=== PATIENT | female | born 1950 | race Caucasian/White ===

== ENCOUNTER 2018-12-14 18:49 | Emergency (ER) | payer MEDICARE, OTHER ==
[~2018-12-14] VITALS: Ht 152.4 cm; Wt 66.7 kg
--- NOTE | 2018-12-14 19:00 | NUR ---
Assumed care of patient from JUAN R Kahn.
--- NOTE | 2018-12-14 19:02 | NUR ---
Patient came in the ER with chief complaint of discomfort on left foot/heel area. Patient AAOx4. Per patient she step down on her porch this morning and felt a crunch on her left foot that cause discomfort. Patient took Tylenola at 5:30pm with minimal relief. Patient stated discomfort mostly on her heel.
--- NOTE | 2018-12-14 19:04 | NUR ---
Dr. Brown on bedside for MSE.
--- NOTE | 2018-12-14 19:20 | NUR ---
Colten bandage applied to left foot per Dr. Brown's instruction. Teching given to patient on how to reapply/remove colten bandage and states understanding.
--- NOTE | 2018-12-14 19:34 | NUR ---
Patient discharged to home in stable conditon. Written and verbal after care instructions given. Patient verbalizes understanding of instructions. Patient ambulated out of the ER with steady gait. All belongings with patient.
[2018-12-14 19:35] VITALS: BP 140/76
== END 2018-12-14 19:36 | disposition home or self-care (01) ==
LOC: ER 18:51
DX: S93.602A Unspecified sprain of left foot, initial encounter (principal); E11.9 Type 2 diabetes mellitus without complications; Z88.8 Allergy status to other drugs, medicaments and biological substances; X50.1XXA Overexertion from prolonged static or awkward postures, initial encounter; Y93.89 Activity, other specified; Y92.89 Other specified places as the place of occurrence of the external cause; Y99.8 Other external cause status
CPT/HCPCS: A4663

== ENCOUNTER 2020-12-12 15:06 | Inpatient (IN) | payer MEDICARE, OTHER ==
[~2020-12-12] VITALS: Ht 152.4 cm; Wt 61.2 kg
[2020-12-12] MEDS ORDERED: HUMALOG INSULIN (15:24)
[2020-12-12] MEDS ORDERED: LEVEMIR INSULIN (15:24)
--- NOTE | 2020-12-12 15:28 | NUR ---
PT IS IN ROOM #2B. DR SULLIVAN EVALUATED THE PT.
[2020-12-12 15:34] LABS: HEMATOCRIT 33.2 % (31.2-41.9); MEAN CORPUSCULAR HEMOGLOBIN 29.7 uug (24.7-32.8); MEAN CORPUSCULAR VOLUME 91.6 fL (75.5-95.3); PLATELET COUNT (AUTO) 368 K/uL (179-408)
[2020-12-12 15:43] LABS: CREATININE 1.6 mg/dL (0.6-1.3); POTASSIUM 4.2 mmol/L (3.5-5.1)
[2020-12-12 15:49] LABS: BILIRUBIN,TOTAL 0.2 mg/dL (0.2-1.0); TOTAL PROTEIN, SERUM 7.9 g/dL (6.4-8.2)
[2020-12-12] MEDS ORDERED: ONDANSETRON 4 MG/2 ML VIAL IV ONE (16:45)
[2020-12-12] MEDS ORDERED: ONDANSETRON 4 MG/2 ML VIAL ONE (16:56)
[2020-12-12] MEDS ORDERED: DEXTROSE 50% 50 ML DISP.SYRIN IV PRN (19:45)
[2020-12-12] MEDS ORDERED: MAGNESIUM HYDROXIDE 30 ML LIQUID UDC PO PRN (19:45)
[2020-12-12] MEDS ORDERED: Z GUARD REMEDY PASTE 57 GM TUBE TOP PRN (19:45)
[2020-12-12] MEDS ORDERED: INSULIN REGULAR, HUMAN 300 UNITS/3 ML VIAL SQ PRN (19:45)
[2020-12-12] MEDS ORDERED: ONDANSETRON 4 MG/2 ML VIAL IV PRN (19:45)
[2020-12-12] MEDS ORDERED: IV D5 1/2 NS 1000 ML 1,000 ML IV PRN (19:45)
--- NOTE | 2020-12-12 21:02 | NUR ---
Report from Inderjit PETE. Patient awake,alert, able to make needs known. Patient request with dinner tray,min assist with meal,fluids.HX left eye blindness uses white cane that did not come with patient. BRP min assist x 1 normal void per patient Back to [facility],comfort measures x 2.
[2020-12-12] MEDS ORDERED: ACETAMINOPHEN 325 MG TABLET PO ONE (21:30)
[2020-12-12] MEDS: BLOOD SUGAR DIAGNOSTIC 1 EACH STRIP VI SCH (21:56)
--- NOTE | 2020-12-12 23:33 | NUR ---
Ambulatory to [facility] x 1, Assisted with phone to call family. Medicated for Right leg pain as directed. Fluids offered. Comfort measures x 2 HOB up as requested.
--- NOTE | 2020-12-12 23:46 | NUR ---
Call for report to room 329 nurse will call back
--- NOTE | 2020-12-13 00:54 | NUR ---
Report to Ning Dailey .BP 120/51,P 80, SAO2 95% RA. Admit Hypoglycima/ placement RAC # 20 SL dry,intact ,to room 329. Patient transported with all personell belongings.
[2020-12-13 01:44] VITALS: BP 150/52
--- NOTE | 2020-12-13 02:11 | NUR ---
Pt arrived at 0105 in the unit from ER. Admitted to Tele for ALOC. AAO x4. No acute distress noted. Denies pain/ discomfort. Pt is legally blind, needs assist to walk to the bathroom. Oriented pt to room and equipment. Pertinent assessment done. Needs attended promptly. Safety measures maintained. Call light and personal items within reach. Will continue to monitor.
[2020-12-13] MEDS: ACETAMINOPHEN 325 MG TABLET PO PRN ×3 (03:52→16:52)
[2020-12-13 04:44] VITALS: BP 129/33
[2020-12-13] MEDS: BLOOD SUGAR DIAGNOSTIC 1 EACH STRIP VI SCH ×4 (06:36→20:52)
[2020-12-13] MEDS: INSULIN REGULAR, HUMAN 300 UNIT/3 ML VIAL SQ PRN ×4 (06:37→16:41)
--- NOTE | 2020-12-13 06:39 | NUR ---
Blood sugar this morning is 538. Followed sliding scale and gave 15 units, notified Dr. De Luna. Will recheck again.
--- NOTE | 2020-12-13 07:30 | NUR ---
Notified Dr. Navarrete of pt's blood sugar. Rechecked blood sugar again at 0715, pt's BS went up to 554. aware. Asked MD if okay to dc IV D5 1/2 NS, okayed and also ordered to give another 15 units of regular insulin. Carried out order. Endorsed accordingly to AM shift.
[2020-12-13 08:19] LABS: HEMATOCRIT 33.8 % (31.2-41.9); MEAN CORPUSCULAR HEMOGLOBIN 29.4 uug (24.7-32.8); MEAN CORPUSCULAR VOLUME 94.6 fL (75.5-95.3); PLATELET COUNT (AUTO) 431 K/uL (179-408)
[2020-12-13 08:38] VITALS: BP 124/45
[2020-12-13 08:44] LABS: CREATININE 1.9 mg/dL (0.6-1.3); MAGNESIUM 2.4 mg/dL (1.8-2.4); PHOSPHOROUS 3.8 mg/dL (2.5-4.9); POTASSIUM 5.6 mmol/L (3.5-5.1)
--- NOTE | 2020-12-13 10:11 | NUR ---
Received pt. AAOX4. vitals stable no c/of pain POC above 400 treated see eMAR. IV access patent. Patient compliant with care. will continue to monitor.
[2020-12-13] MEDS ORDERED: SODIUM POLYSTYRENE SULFONATE 15 G/60 ML LIQUID UDC PO ONE (11:30)
--- NOTE | 2020-12-13 11:31 | NUR ---
Attending notified of accu-check of 410 and informed that pt. cover Per sliding scale no further orders received.
[2020-12-13] MEDS: IV NS 1000 ML 1,000 ML IV PRN ×2 (11:46→22:34)
[2020-12-13 11:56] VITALS: BP 99/48
[2020-12-13] MEDS ORDERED: INSU100I19 SQ (14:10)
[2020-12-13] MEDS ORDERED: PREG75CA PO (14:10)
[2020-12-13] MEDS ORDERED: MONT10TA22 PO (14:10)
[2020-12-13] MEDS ORDERED: AMLO5TAB4 PO (14:10)
[2020-12-13] MEDS ORDERED: NEBI10TA2 PO (14:10)
[2020-12-13] MEDS ORDERED: FENO134C PO (14:10)
[2020-12-13] MEDS ORDERED: INSU100V SQ (14:10)
[2020-12-13] MEDS ORDERED: OLME40TA12 PO (14:10)
[2020-12-13] MEDS ORDERED: OMEP20TA5 PO (14:10)
[2020-12-13] MEDS ORDERED: ICOS1CAP PO (14:10)
[2020-12-13] MEDS ORDERED: HYDR25TA4 PO (14:10)
[2020-12-13] MEDS ORDERED: AMIT25TA9 PO (14:10)
[2020-12-13] MEDS ORDERED: ALEN70TA3 PO (14:10)
[2020-12-13] MEDS ORDERED: INSU100V10 SQ (14:10)
[2020-12-13] MEDS ORDERED: ROSU20TA2 PO (14:10)
[2020-12-13] MEDS ORDERED: CLOP75TA15 PO (14:10)
[2020-12-13] MEDS: HYDROCODONE/APAP 5-325MG TABLET PO PRN ×2 (14:23→21:55)
[2020-12-13 15:44] VITALS: BP 125/32
--- NOTE | 2020-12-13 17:50 | NUR ---
Left pt resting comfortable pain well controlled. AAOX4. vitals stable. On room air with saturation within desire limits, afebrile for the entire shift. Tolerating diet well with no n/v/d. Ambulatory with assistance no injury sustained. IV access patent and infusing with IVF. Cardiac lobo stable with sbp within desired limits. Will endorse to incoming shift.
--- NOTE | 2020-12-13 19:30 | NUR ---
RECEIVED PT AWAKE, ALERT AND ORIENTED X 4. PT IN NO ACUTE DISTRESS. IV INTACT. SAFETY AND COMFORT PROVIDED. WILL CONTINUE TO MONITOR.
[2020-12-13 20:00] VITALS: BP 121/40
[2020-12-14] VITALS: BP 129/50
[2020-12-14] MEDS: ACETAMINOPHEN 325 MG TABLET PO PRN (02:10)
--- NOTE | 2020-12-14 03:58 | NUR ---
PT GIVEN NORCO 5-325 MG AT 2155H FOR 8/10 GENERALIZED PAIN SCALE AND TYLENOL 0210H 650 MG PRN FOR GENERALIZED PAIN. PT TOLERATED IT WELL. WILL CONTINUE TO MONITOR.
[2020-12-14 04:21] VITALS: BP 142/45
--- NOTE | 2020-12-14 05:47 | NUR ---
PT SLEPT INTERMITTENTLY. PT IN NO ACUTE DISTRESS. PRESCRIBED MEDICATION GIVEN AND PT TOLERATED IT WELL. PT IV INTACT.PT ON SINUS RHYTHM.SAFETY AND COMFORT PROVIDED. ALL NEEDS ARE MET. WILL ENDORSE TO INCOMING NURSE FOR CONTINUITY OF CARE.
[2020-12-14] MEDS: BLOOD SUGAR DIAGNOSTIC 1 EACH STRIP VI SCH ×2 (06:00→11:46)
--- NOTE | 2020-12-14 06:07 | NUR ---
NOTIFIED DR. MCKAY MORELOS REGARDING BLOOD [id number] AND WILL RECHECK BLOOD SUGAR AFTER 30 MINUTES. INSULIN PROTOCOL INITIATED. GAVE INSULIN 15U AND NOTIFY MD. PT IN NO ACUTE DISTRESS. PT NO SIGNA AND SYMPTOMS OF HYPERGLYCEMIA. WILL CONTINUE TO MONITOR.
[2020-12-14] MEDS: INSULIN REGULAR, HUMAN 300 UNIT/3 ML VIAL SQ PRN ×3 (06:09→11:45)
--- NOTE | 2020-12-14 06:50 | NUR ---
BLOOD SUGAR RECHECKED AND IT WAS 496. PT NO SIGNS OF SYMPTOMS OF HYPERGLYCEMIA AND IN NO ACUTE DISTRESS. NOTIFY HYDROGRAPHIC ENGINEER.
[2020-12-14 06:54] LABS: HEMATOCRIT 30.8 % (31.2-41.9); MEAN CORPUSCULAR HEMOGLOBIN 30.5 uug (24.7-32.8); MEAN CORPUSCULAR VOLUME 92.3 fL (75.5-95.3); PLATELET COUNT (AUTO) 339 K/uL (179-408)
[2020-12-14 07:03] LABS: CREATININE 1.5 mg/dL (0.6-1.3); PHOSPHOROUS 2.8 mg/dL (2.5-4.9); POTASSIUM 5.1 mmol/L (3.5-5.1)
--- NOTE | 2020-12-14 07:12 | NUR ---
AT 0710H ORDERED TO GIVE 15U REGULAR INSULIN AND ASKED PT REGARDING LEVEMIR DOSE OF THE PT. TOLD THAT PT IS GETTING 37U IN THE MORNING AND 35 UNITS AT NIGHT.
[2020-12-14] MEDS ORDERED: INSULIN DETEMIR 300 UNIT/3 ML CARTRIDGE SQ SCH ×2 (09:00→21:00)
[2020-12-14] MEDS ORDERED: INSULIN GLARGINE,HUM 300 UNITS/3 ML CARTRIDGE SQ SCH ×2 (09:00→21:00)
--- NOTE | 2020-12-14 10:02 | NUR ---
alert and oriented able to make needs known. denies pain or discomfort. assisted to the bathroom. no s/sx of hyperglycemia. no acute distress. iv intact and patent. bed lowest and locked siderails x2 up. call light in reach. will cont to monitor.
[2020-12-14 11:28] VITALS: BP 147/44
[2020-12-14 16:00] VITALS: BP 145/52
--- NOTE | 2020-12-14 16:00 | NUR ---
Discharged to home. alert and oriented x4 able to make needs known. denies pain or sob. no acute distress. follow up and medication instructions given to patient and her brother Eber and both verbalized understanding. Karen jama is assisting family of assisted living facility. Patient left via private car.
== END 2020-12-14 16:00 | disposition home or self-care (01) | DRG 637 ==
LOC: ER 15:08 → TELE3 12-13 00:07
PROVIDERS: ADMIT Internal Medicine; ATTEND Internal Medicine
DX: E11.649 Type 2 diabetes mellitus with hypoglycemia without coma (principal); G93.41 Metabolic encephalopathy; N17.0 Acute kidney failure with tubular necrosis; D64.9 Anemia, unspecified; I10 Essential (primary) hypertension; Z79.4 Long term (current) use of insulin; H54.8 Legal blindness, as defined in USA; Z20.822 Contact with and (suspected) exposure to COVID-19; S80.01XA Contusion of right knee, initial encounter; W19.XXXA Unspecified fall, initial encounter; Y93.9 Activity, unspecified; Y92.009 Unspecified place in unspecified non-institutional (private) residence as the place of occurrence of the external cause
CPT/HCPCS: 36415; 70030-TC; 70450; 71045; 73551; 83605; 83735; 84100; 85025; 93005; 97161; A4663; G0378; J1815; J2405; J7030

== ENCOUNTER 2022-12-25 18:08 | Inpatient (IN) | payer MEDICARE, OTHER ==
[~2022-12-25] VITALS: Ht 157.5 cm; Wt 63.1 kg
[~2022-12-25 18:08] MED LIST: ALEN70TA3 PO; AMIT25TA9 PO; AMLO5TAB4 PO; CLOP75TA15 PO; FENO134C PO; HYDR25TA4 PO; ICOS1CAP PO; INSU100I19 SQ; INSU100V SQ; INSU100V10 SQ; MONT10TA22 PO; NEBI10TA2 PO; OLME40TA12 PO; OMEP20TA5 PO; PREG75CA PO; ROSU20TA2 PO
[2022-12-25] MEDS ORDERED: IV NORMAL SALINE 1000 ML BAG IV ONE (18:30)
[2022-12-25 18:52] LABS: BASOPHILS # (AUTO) 0.1 K/UL (0.0-0.2); BASOPHILS % (AUTO) 0.8 % (0.0-2.0); EOSINOPHILS % (AUTO) 0.1 % (0.0-7.0); HEMATOCRIT 37.2 % (31.2-41.9); HEMOGLOBIN 12.6 g/dL (10.9-14.3); LYMPHOCYTES % (AUTO) 19.8 % (20.5-51.5); MEAN CORPUSCULAR HEMOGLOBIN 30.3 uug (24.7-32.8); MEAN CORPUSCULAR HGB CONC 34 g/dL (32.3-35.6); MEAN CORPUSCULAR VOLUME 89.5 fL (75.5-95.3); MONOCYTES % (AUTO) 9.3 % (0.0-11.0); NEUTROPHILS # (AUTO) 7.3 K/uL (1.8-8.9); PLATELET COUNT (AUTO) 579 K/uL (179-408); RED BLOOD CELL COUNT(AUTO) 4.16 MIL/uL (3.63-4.92); RED CELL DISTRIBUTION WIDTH 12.9 % (12.3-17.7); WHITE BLOOD COUNT (AUTO) 10.4 K/uL (3.8-11.8)
[2022-12-25 18:57] LABS: DIFFERENTIAL COMMENT 1
[2022-12-25 19:02] LABS: CALCIUM 10.5 mg/dL (8.5-10.1); CARBON DIOXIDE 25 mmol/L (21-32); CHLORIDE 100 mmol/L (98-107); CREATININE 1.4 mg/dL (0.6-1.3); GLUCOSE 82 mg/dL (74-106); POTASSIUM 3.7 mmol/L (3.5-5.1); SODIUM SERUM 141 mmol/L (136-145); UREA NITROGEN, BLOOD 33 mg/dL (7-18)
[2022-12-25] MEDS ORDERED: LOPE2TAB25 PO (19:04)
[2022-12-25] MEDS ORDERED: TRAM50TA2 PO (19:04)
[2022-12-25] MEDS ORDERED: ICOS1CAP PO (19:04)
[2022-12-25] MEDS ORDERED: OMEP20CA15 PO (19:04)
[2022-12-25] MEDS ORDERED: INSU100V39 SQ (19:04)
[2022-12-25] MEDS ORDERED: FAMO20TA8 PO (19:04)
[2022-12-25] MEDS ORDERED: ACET325T53 PO ×2 (19:04)
[2022-12-25] MEDS ORDERED: BISM262O28 PO (19:04)
[2022-12-25] MEDS ORDERED: CALC-494 PO (19:04)
[2022-12-25] MEDS ORDERED: INSU100I24 SQ (19:04)
[2022-12-25] MEDS ORDERED: NEBI10TA2 PO (19:04)
[2022-12-25] MEDS ORDERED: LOSA100T31 PO (19:04)
[2022-12-25] MEDS ORDERED: LEVO5TAB13 PO (19:04)
[2022-12-25] MEDS ORDERED: DIPH1TAB PO (19:04)
[2022-12-25] MEDS ORDERED: [UNRECOGNIZED DRUG - OTHER] (19:04)
[2022-12-25] MEDS ORDERED: GABA600T12 PO (19:04)
[2022-12-25] MEDS ORDERED: ALEN10TA26 PO (19:04)
[2022-12-25] MEDS ORDERED: MELO-105 PO (19:04)
[2022-12-25] MEDS ORDERED: IRON (19:04)
[2022-12-25] MEDS ORDERED: DICL100G31 TP (19:04)
[2022-12-25] MEDS ORDERED: AMLO10TA59 PO (19:04)
[2022-12-25] MEDS ORDERED: ROSU10TA2 PO (19:04)
[2022-12-25] MEDS ORDERED: MONT10TA22 PO (19:04)
[2022-12-25 19:05] LABS: AMMONIA < 10 umol/L (11-32)
[2022-12-25 19:12] LABS: ALANINE AMINOTRANSFERASE 30 U/L (14-59); ALBUMIN 4.3 g/dL (3.4-5.0); ALKALINE PHOSPHATASE 99 U/L (50-136); ASPARTATE AMINOTRANSFERASE 18 U/L (15-37); BILIRUBIN,DIRECT 0.1 mg/dL (0.0-0.2); BILIRUBIN,TOTAL 0.5 mg/dL (0.2-1.0); TOTAL PROTEIN, SERUM 7.9 g/dL (6.4-8.2)
[2022-12-25 19:22] LABS: LACTIC ACID 2.8 mmol/L (0.4-2.0)
[2022-12-25] MEDS ORDERED: IV NS 1000 ML 1,000 ML IV ONE (19:30)
[2022-12-25] MEDS ORDERED: HALOPERIDOL LACTATE 5 MG/1 ML VIAL ONE ×2 (20:08→23:03)
[2022-12-25] MEDS ORDERED: diphenhydrAMINE 50 MG/1 ML VIAL ONE ×2 (20:08→23:03)
[2022-12-25] MEDS ORDERED: LORAZEPAM 2 MG/1 ML VIAL ONE ×2 (20:09→23:04)
[2022-12-25] MEDS ORDERED: HALOPERIDOL LACTATE 5 MG/1 ML VIAL IV ONE ×2 (20:15→22:45)
[2022-12-25] MEDS ORDERED: LORAZEPAM 2 MG/1 ML VIAL IV ONE ×2 (20:15→22:45)
[2022-12-25] MEDS ORDERED: diphenhydrAMINE 50 MG/1 ML VIAL IV ONE ×2 (20:15→22:45)
[2022-12-25 20:17] LABS: *BLOOD, URINE 2+ (NEGATIVE); *CLARITY,URINE CLEAR (CLEAR); *COLOR,URINE YELLOW (YELLOW); *KETONES,URINE TRACE (NEGATIVE); *UROBILINOGEN,URINE 0.2 E.U./dl (NORMAL); LEUKOCYTE ESTERASE ,URINE NEGATIVE (NEGATIVE); NITRITE, URINE NEGATIVE (NEGATIVE); PH,URINE 5.5 (5.0-8.0)
[2022-12-25 20:23] LABS: *PROTEIN,URINE 3+ (NEGATIVE)
[2022-12-25 20:24] LABS: *BILIRUBIN,URIN 1+ (NEGATIVE); UGLUCOSE 1+ (NEGATIVE)
[2022-12-25 20:37] LABS: BACTERIA,URINE FEW /HPF (NONE SEEN); RBC,URINE 20-50 /HPF (0-3); SQUAMOUS EPITHELIAL CELL,UR FEW /HPF (NONE SEEN); WBC,URINE 0-3 /HPF (0-3)
[2022-12-25] MEDS ORDERED: hydrALAZINE HCL 20 MG/1 ML VIAL ONE (22:00)
[2022-12-25] MEDS: hydrALAZINE HCL IV 20 MG in IV NORMAL SALINE 50 ML IV SCH (22:08)
[2022-12-25] MEDS ORDERED: ONDANSETRON 4 MG/2 ML VIAL IV PRN (22:15)
[2022-12-25] MEDS ORDERED: INSULIN REGULAR, HUMAN 300 UNIT/3 ML VIAL SQ PRN (22:15)
[2022-12-25] MEDS ORDERED: IV D5/ 0.9% NACL 1,000 ML IV PRN (22:15)
[2022-12-25] MEDS ORDERED: DEXTROSE 50% 50 ML DISP.SYRIN IV PRN (22:15)
[2022-12-25] MEDS ORDERED: ENOXAPARIN SODIUM 30 MG/0.3 ML DISP.SYRIN SUBCUT SCH (23:30)
[2022-12-26] VITALS (7 sets, daily range): BP systolic 152–191; BP diastolic 49–111; TEMP 97.9–99.8; O2SAT 93–100
[2022-12-26] MEDS: hydrALAZINE HCL 20 MG/1 ML VIAL IV PRN ×2 (03:13→23:00)
[2022-12-26] MEDS: hydrALAZINE HCL IV 20 MG in IV NORMAL SALINE 50 ML IV SCH (06:00)
[2022-12-26 07:05] LABS: BASOPHILS # (AUTO) 0.1 K/UL (0.0-0.2); BASOPHILS % (AUTO) 0.3 % (0.0-2.0); HEMATOCRIT 36.1 % (31.2-41.9); HEMOGLOBIN 11.8 g/dL (10.9-14.3); LYMPHOCYTES # (AUTO) 0.9 K/uL (0.8-4.8); LYMPHOCYTES % (AUTO) 4.9 % (20.5-51.5); MEAN CORPUSCULAR HEMOGLOBIN 30.4 uug (24.7-32.8); MEAN CORPUSCULAR HGB CONC 33 g/dL (32.3-35.6); MEAN CORPUSCULAR VOLUME 93.3 fL (75.5-95.3); MONOCYTES # (AUTO) 0.5 K/uL (0.1-1.30); MONOCYTES % (AUTO) 2.7 % (0.0-11.0); NEUTROPHILS # (AUTO) 17.2 K/uL (1.8-8.9); NEUTROPHILS % (AUTO) 92.1 % (38.5-71.5); PLATELET COUNT (AUTO) 543 K/uL (179-408); RED BLOOD CELL COUNT(AUTO) 3.87 MIL/uL (3.63-4.92); RED CELL DISTRIBUTION WIDTH 13.1 % (12.3-17.7); WHITE BLOOD COUNT (AUTO) 18.7 K/uL (3.8-11.8)
[2022-12-26 07:20] LABS: DIFFERENTIAL COMMENT 1
[2022-12-26 07:21] LABS: CALCIUM 9.5 mg/dL (8.5-10.1); CARBON DIOXIDE 15 mmol/L (21-32); CHLORIDE 103 mmol/L (98-107); CREATININE 1.3 mg/dL (0.6-1.3); MAGNESIUM 1.8 mg/dL (1.8-2.4); PHOSPHOROUS 3.7 mg/dL (2.5-4.9); POTASSIUM 4.5 mmol/L (3.5-5.1); SODIUM SERUM 139 mmol/L (136-145); UREA NITROGEN, BLOOD 32 mg/dL (7-18)
[2022-12-26 07:47] LABS: GLUCOSE 582 mg/dL (74-106)
[2022-12-26] MEDS: BLOOD SUGAR DIAGNOSTIC 1 EACH STRIP VI SCH ×6 (07:59→20:26)
[2022-12-26] MEDS ORDERED: INSULIN REGULAR, HUMAN 300 UNIT/3 ML VIAL SQ ONE (08:15)
[2022-12-26] MEDS ORDERED: PIPERACILLIN SODIUM/TAZOBACTAM 3.375 G in IV DEXTROSE 5% 50 ML IV SCH (09:00)
[2022-12-26] MEDS ORDERED: DEXTROSE 50% 50 ML DISP.SYRIN IV PRN (09:15)
[2022-12-26 09:35] LABS: BASOPHILS % (AUTO) 0.3 % (0.0-2.0); HEMATOCRIT 34.4 % (31.2-41.9); HEMOGLOBIN 11.2 g/dL (10.9-14.3); LYMPHOCYTES # (AUTO) 0.7 K/uL (0.8-4.8); LYMPHOCYTES % (AUTO) 4.4 % (20.5-51.5); MEAN CORPUSCULAR HEMOGLOBIN 30.4 uug (24.7-32.8); MEAN CORPUSCULAR HGB CONC 33 g/dL (32.3-35.6); MEAN CORPUSCULAR VOLUME 93.2 fL (75.5-95.3); MONOCYTES # (AUTO) 0.6 K/uL (0.1-1.30); MONOCYTES % (AUTO) 4.3 % (0.0-11.0); NEUTROPHILS # (AUTO) 13.6 K/uL (1.8-8.9); PLATELET COUNT (AUTO) 507 K/uL (179-408); RED BLOOD CELL COUNT(AUTO) 3.69 MIL/uL (3.63-4.92); RED CELL DISTRIBUTION WIDTH 13.4 % (12.3-17.7)
[2022-12-26 09:46] LABS: DIFFERENTIAL COMMENT 1
[2022-12-26 09:57] LABS: ALANINE AMINOTRANSFERASE 31 U/L (14-59); ALBUMIN 3.5 g/dL (3.4-5.0); ALKALINE PHOSPHATASE 88 U/L (50-136); ASPARTATE AMINOTRANSFERASE 35 U/L (15-37); BILIRUBIN,TOTAL 0.4 mg/dL (0.2-1.0); CARBON DIOXIDE 16 mmol/L (21-32); CHLORIDE 101 mmol/L (98-107); CREATININE 1.6 mg/dL (0.6-1.3); LIPASE 28 U/L (16-77); SODIUM SERUM 138 mmol/L (136-145); TOTAL PROTEIN, SERUM 6.8 g/dL (6.4-8.2); UREA NITROGEN, BLOOD 33 mg/dL (7-18)
[2022-12-26] MEDS ORDERED: VANCOMYCIN IV 1,000 MG in IV DEXTROSE 5% 250 ML IV SCH (10:00)
[2022-12-26] MEDS: METOPROLOL TARTRATE 50 MG TABLET PO SCH ×2 (10:01→20:23)
[2022-12-26] MEDS: CLOPIDOGREL 75 MG TABLET PO SCH (10:02)
[2022-12-26 10:06] LABS: CALCIUM 9.2 mg/dL (8.5-10.1)
[2022-12-26 10:20] LABS: GLUCOSE 568 mg/dL (74-106)
[2022-12-26] MEDS ORDERED: IV NORMAL SALINE 250 ML IV ONE (10:20)
[2022-12-26] MEDS ORDERED: IOHEXOL 300MG/ML 100 ML INFUS..BTL ONE (10:20)
[2022-12-26] MEDS ORDERED: SWABABLE VALVE TRANSFER SET EA MC ONE (10:20)
[2022-12-26] MEDS ORDERED: INSU200I SQ (10:41)
[2022-12-26] MEDS ORDERED: ENOXAPARIN SODIUM 80 MG/0.8 ML DISP.SYRIN SQ ONE (11:27)
[2022-12-26] MEDS: INSULIN REGULAR, HUMAN 300 UNIT/3 ML VIAL SQ PRN (12:13)
[2022-12-26] MEDS: PIPERACILLIN SODIUM/TAZOBACTAM 3.375 G in IV DEXTROSE 5% 100 ML IV SCH ×2 (13:57→21:00)
[2022-12-26] MEDS: INSULIN GLARGINE,HUM 300 UNITS/3 ML CARTRIDGE SQ SCH (20:28)
[2022-12-26] MEDS ORDERED: LORAZEPAM 2 MG/1 ML VIAL IV PRN (23:15)
[2022-12-27] VITALS: BP 146/50; TEMP 98; O2SAT 94
[2022-12-27 04:30] VITALS: BP 178/52; TEMP 98.1; O2SAT 95
[2022-12-27] MEDS: hydrALAZINE HCL 20 MG/1 ML VIAL IV PRN (04:44)
[2022-12-27] MEDS: PIPERACILLIN SODIUM/TAZOBACTAM 3.375 G in IV DEXTROSE 5% 100 ML IV SCH (05:23)
[2022-12-27 05:54] VITALS: BP 152/48
[2022-12-27] MEDS: BLOOD SUGAR DIAGNOSTIC 1 EACH STRIP VI SCH ×4 (06:39→21:12)
[2022-12-27 07:22] LABS: CALCIUM 9.4 mg/dL (8.5-10.1); CARBON DIOXIDE 21 mmol/L (21-32); CHLORIDE 105 mmol/L (98-107); CREATININE 1.3 mg/dL (0.6-1.3); GLUCOSE 379 mg/dL (74-106); SODIUM SERUM 141 mmol/L (136-145); UREA NITROGEN, BLOOD 30 mg/dL (7-18)
[2022-12-27 07:24] LABS: POTASSIUM 4.7 mmol/L (3.5-5.1)
[2022-12-27] MEDS: INSULIN REGULAR, HUMAN 300 UNIT/3 ML VIAL SQ PRN ×2 (07:40→11:25)
[2022-12-27] MEDS: ENOXAPARIN SODIUM 60 MG/0.6 ML DISP.SYRIN SQ SCH ×2 (08:24→21:29)
[2022-12-27] MEDS: LOSARTAN POTASSIUM 50 MG TABLET PO SCH (08:25)
[2022-12-27] MEDS: CARVEDILOL 25 MG TABLET PO SCH ×2 (08:25→18:31)
[2022-12-27] MEDS: CLOPIDOGREL 75 MG TABLET PO SCH (08:25)
[2022-12-27] MEDS: ACETAMINOPHEN 325 MG TABLET PO PRN ×2 (08:37→18:31)
[2022-12-27 09:01] LABS: HIV-1 p24 ANTIGEN NON REACTIVE (NONREACTIVE); HIV-1/2 ANTIBODY NON REACTIVE (NONREACTIVE)
[2022-12-27 10:41] VITALS: BP 152/52; TEMP 98; O2SAT 95
[2022-12-27] MEDS: IV 1/2NS 1000 ML 1,000 ML IV PRN (10:51)
[2022-12-27] MEDS: CEFTRIAXONE 2 G in IV DEXTROSE 5% 100 ML IV SCH (13:44)
[2022-12-27 15:08] VITALS: BP 135/48; TEMP 98.6; O2SAT 97
[2022-12-27 20:02] VITALS: BP 139/48; TEMP 97.8; O2SAT 96
[2022-12-27] MEDS: ATORVASTATIN 40 MG TABLET PO SCH (21:21)
[2022-12-27] MEDS: AMLODIPINE 10 MG TABLET PO SCH (21:21)
[2022-12-27] MEDS: INSULIN GLARGINE,HUM 300 UNITS/3 ML CARTRIDGE SQ SCH (21:26)
[2022-12-27] MEDS: INSULIN REGULAR, HUMAN 300 UNITS/3 ML VIAL SQ PRN (21:27)
[2022-12-28] MEDS: IV 1/2NS 1000 ML 1,000 ML IV PRN ×2 (01:32→17:34)
[2022-12-28] MEDS: BLOOD SUGAR DIAGNOSTIC 1 EACH STRIP VI SCH ×4 (06:50→21:26)
[2022-12-28 07:21] LABS: BASOPHILS % (AUTO) 0.2 % (0.0-2.0); EOSINOPHILS % (AUTO) 0.4 % (0.0-7.0); HEMATOCRIT 32.2 % (31.2-41.9); HEMOGLOBIN 10.9 g/dL (10.9-14.3); LYMPHOCYTES # (AUTO) 1.5 K/uL (0.8-4.8); LYMPHOCYTES % (AUTO) 17.5 % (20.5-51.5); MEAN CORPUSCULAR HEMOGLOBIN 30.8 uug (24.7-32.8); MEAN CORPUSCULAR HGB CONC 34 g/dL (32.3-35.6); MONOCYTES # (AUTO) 0.5 K/uL (0.1-1.30); MONOCYTES % (AUTO) 6.2 % (0.0-11.0); NEUTROPHILS # (AUTO) 6.7 K/uL (1.8-8.9); NEUTROPHILS % (AUTO) 75.7 % (38.5-71.5); PLATELET COUNT (AUTO) 437 K/uL (179-408); RED BLOOD CELL COUNT(AUTO) 3.54 MIL/uL (3.63-4.92); RED CELL DISTRIBUTION WIDTH 13.5 % (12.3-17.7); WHITE BLOOD COUNT (AUTO) 8.8 K/uL (3.8-11.8)
[2022-12-28 07:22] LABS: DIFFERENTIAL COMMENT 1
[2022-12-28 08:14] LABS: CALCIUM 8.3 mg/dL (8.5-10.1); CARBON DIOXIDE 23 mmol/L (21-32); CHLORIDE 106 mmol/L (98-107); GLUCOSE 116 mg/dL (74-106); POTASSIUM 3.5 mmol/L (3.5-5.1); SODIUM SERUM 140 mmol/L (136-145); UREA NITROGEN, BLOOD 25 mg/dL (7-18)
[2022-12-28] MEDS: ASPIRIN 81 MG TAB.CHEW PO SCH (09:52)
[2022-12-28] MEDS: CLOPIDOGREL 75 MG TABLET PO SCH (09:53)
[2022-12-28] MEDS: CARVEDILOL 25 MG TABLET PO SCH ×2 (09:54→17:33)
[2022-12-28] MEDS: LOSARTAN POTASSIUM 50 MG TABLET PO SCH (09:54)
[2022-12-28] MEDS: ENOXAPARIN SODIUM 40 MG/0.4 ML DISP.SYRIN SQ SCH (09:56)
[2022-12-28 11:15] VITALS: BP 121/49; TEMP 98.1; O2SAT 94
[2022-12-28] MEDS: INSULIN REGULAR, HUMAN 300 UNIT/3 ML VIAL SQ PRN ×2 (12:18→17:36)
[2022-12-28] MEDS: CEFTRIAXONE 2 G in IV DEXTROSE 5% 100 ML IV SCH (14:04)
[2022-12-28] MEDS: ACETAMINOPHEN 325 MG TABLET PO PRN (15:04)
[2022-12-28 15:10] VITALS: BP 162/57; TEMP 98.2; O2SAT 96
[2022-12-28 20:00] VITALS: BP 177/61; TEMP 98; O2SAT 95
[2022-12-28] MEDS: AMLODIPINE 10 MG TABLET PO SCH ×2 (21:00→23:22)
[2022-12-28] MEDS: INSULIN GLARGINE,HUM 300 UNITS/3 ML CARTRIDGE SQ SCH (21:23)
[2022-12-28] MEDS: ATORVASTATIN 40 MG TABLET PO SCH (21:26)
[2022-12-29] VITALS: BP 196/57
[2022-12-29] MEDS: hydrALAZINE HCL 20 MG/1 ML VIAL IV PRN (00:32)
[2022-12-29 05:24] VITALS: BP 163/63; TEMP 98.6; O2SAT 94
[2022-12-29] MEDS: IV 1/2NS 1000 ML 1,000 ML IV PRN (07:06)
[2022-12-29 07:31] LABS: CALCIUM 8.9 mg/dL (8.5-10.1); CARBON DIOXIDE 24 mmol/L (21-32); CHLORIDE 103 mmol/L (98-107); CREATININE 0.7 mg/dL (0.6-1.3); GLUCOSE 172 mg/dL (74-106); POTASSIUM 3.7 mmol/L (3.5-5.1); SODIUM SERUM 137 mmol/L (136-145); UREA NITROGEN, BLOOD 18 mg/dL (7-18)
[2022-12-29 07:33] LABS: BASOPHILS % (AUTO) 0.4 % (0.0-2.0); EOSINOPHILS % (AUTO) 0.2 % (0.0-7.0); HEMATOCRIT 34.2 % (31.2-41.9); HEMOGLOBIN 11.6 g/dL (10.9-14.3); LYMPHOCYTES % (AUTO) 17.5 % (20.5-51.5); MEAN CORPUSCULAR HEMOGLOBIN 30.7 uug (24.7-32.8); MEAN CORPUSCULAR HGB CONC 34 g/dL (32.3-35.6); MEAN CORPUSCULAR VOLUME 90.1 fL (75.5-95.3); MONOCYTES # (AUTO) 0.4 K/uL (0.1-1.30); MONOCYTES % (AUTO) 6.4 % (0.0-11.0); NEUTROPHILS # (AUTO) 4.3 K/uL (1.8-8.9); NEUTROPHILS % (AUTO) 75.5 % (38.5-71.5); PLATELET COUNT (AUTO) 431 K/uL (179-408); RED BLOOD CELL COUNT(AUTO) 3.79 MIL/uL (3.63-4.92); RED CELL DISTRIBUTION WIDTH 13.4 % (12.3-17.7); WHITE BLOOD COUNT (AUTO) 5.7 K/uL (3.8-11.8)
[2022-12-29 07:34] LABS: DIFFERENTIAL COMMENT N
[2022-12-29] MEDS: INSULIN REGULAR, HUMAN 300 UNIT/3 ML VIAL SQ PRN ×2 (08:49→12:41)
[2022-12-29] MEDS: ENOXAPARIN SODIUM 40 MG/0.4 ML DISP.SYRIN SQ SCH (08:50)
[2022-12-29] MEDS: CLOPIDOGREL 75 MG TABLET PO SCH (08:52)
[2022-12-29] MEDS: BLOOD SUGAR DIAGNOSTIC 1 EACH STRIP VI SCH ×4 (08:52→20:41)
[2022-12-29] MEDS: CARVEDILOL 25 MG TABLET PO SCH ×2 (08:53→18:19)
[2022-12-29] MEDS: LOSARTAN POTASSIUM 50 MG TABLET PO SCH (08:53)
[2022-12-29] MEDS: ASPIRIN 81 MG TAB.CHEW PO SCH (08:54)
[2022-12-29] MEDS: hydrALAZINE HCL 50 MG TABLET PO SCH ×2 (08:54→21:53)
[2022-12-29] MEDS: NEPRO (VANILLA) 237 ML CAN PO SCH (08:55)
[2022-12-29] MEDS: ACETAMINOPHEN 325 MG TABLET PO PRN ×3 (09:20→21:50)
[2022-12-29 15:13] VITALS: BP 157/55; TEMP 98.4; O2SAT 96
[2022-12-29] MEDS ORDERED: CALCIUM CARBONATE 500 MG TAB.CHEW PO PRN (19:45)
[2022-12-29 20:22] VITALS: BP 144/38; TEMP 98.6; O2SAT 96
[2022-12-29] MEDS: AMLODIPINE 10 MG TABLET PO SCH (20:36)
[2022-12-29] MEDS: ATORVASTATIN 40 MG TABLET PO SCH (20:36)
[2022-12-29] MEDS: INSULIN GLARGINE,HUM 300 UNITS/3 ML CARTRIDGE SQ SCH (20:43)
[2022-12-29] MEDS: INSULIN REGULAR, HUMAN 300 UNITS/3 ML VIAL SQ PRN (20:44)
[2022-12-30 04:30] VITALS: BP 170/70; TEMP 98.4; O2SAT 96
[2022-12-30] MEDS: hydrALAZINE HCL 20 MG/1 ML VIAL IV PRN (05:00)
[2022-12-30] MEDS: BLOOD SUGAR DIAGNOSTIC 1 EACH STRIP VI SCH ×4 (06:42→21:00)
[2022-12-30] MEDS: ACETAMINOPHEN 325 MG TABLET PO PRN ×2 (06:52→17:12)
[2022-12-30 07:07] LABS: BASOPHILS % (AUTO) 0.9 % (0.0-2.0); EOSINOPHILS % (AUTO) 0.7 % (0.0-7.0); HEMATOCRIT 35.1 % (31.2-41.9); HEMOGLOBIN 11.8 g/dL (10.9-14.3); LYMPHOCYTES # (AUTO) 1.2 K/uL (0.8-4.8); LYMPHOCYTES % (AUTO) 23.5 % (20.5-51.5); MEAN CORPUSCULAR HEMOGLOBIN 30.6 uug (24.7-32.8); MEAN CORPUSCULAR HGB CONC 34 g/dL (32.3-35.6); MEAN CORPUSCULAR VOLUME 91.1 fL (75.5-95.3); MONOCYTES # (AUTO) 0.3 K/uL (0.1-1.30); MONOCYTES % (AUTO) 6.2 % (0.0-11.0); NEUTROPHILS # (AUTO) 3.6 K/uL (1.8-8.9); NEUTROPHILS % (AUTO) 68.7 % (38.5-71.5); PLATELET COUNT (AUTO) 459 K/uL (179-408); RED BLOOD CELL COUNT(AUTO) 3.86 MIL/uL (3.63-4.92); RED CELL DISTRIBUTION WIDTH 13.3 % (12.3-17.7); WHITE BLOOD COUNT (AUTO) 5.2 K/uL (3.8-11.8)
[2022-12-30 07:19] LABS: DIFFERENTIAL COMMENT 1
[2022-12-30 07:25] LABS: CALCIUM 9.2 mg/dL (8.5-10.1); CREATININE 0.7 mg/dL (0.6-1.3); POTASSIUM 3.8 mmol/L (3.5-5.1)
[2022-12-30] MEDS: LOSARTAN POTASSIUM 50 MG TABLET PO SCH (08:22)
[2022-12-30] MEDS: ASPIRIN 81 MG TAB.CHEW PO SCH (08:22)
[2022-12-30] MEDS: CLOPIDOGREL 75 MG TABLET PO SCH (08:23)
[2022-12-30] MEDS: CARVEDILOL 25 MG TABLET PO SCH ×2 (08:23→17:14)
[2022-12-30] MEDS: ENOXAPARIN SODIUM 40 MG/0.4 ML DISP.SYRIN SQ SCH (08:24)
[2022-12-30] MEDS: NEPRO (VANILLA) 237 ML CAN PO SCH (08:36)
[2022-12-30] MEDS: hydrALAZINE HCL 50 MG TABLET PO SCH ×2 (08:36→21:55)
[2022-12-30 11:09] VITALS: BP 104/35; TEMP 98.4; O2SAT 95
[2022-12-30] MEDS: DOCUSATE SODIUM 250 MG CAPSULE PO SCH (12:12)
[2022-12-30] MEDS: FAMOTIDINE 20 MG TABLET PO SCH (12:12)
[2022-12-30] MEDS: INSULIN REGULAR, HUMAN 300 UNIT/3 ML VIAL SQ PRN ×2 (12:29→17:13)
[2022-12-30 15:07] VITALS: BP 165/62; TEMP 98.4; O2SAT 97
[2022-12-30 20:24] VITALS: BP 169/59; TEMP 98.5; O2SAT 94
[2022-12-30] MEDS: AMLODIPINE 10 MG TABLET PO SCH (21:54)
[2022-12-30] MEDS: ATORVASTATIN 40 MG TABLET PO SCH (21:55)
[2022-12-30] MEDS: INSULIN GLARGINE,HUM 300 UNITS/3 ML CARTRIDGE SQ SCH (21:58)
[2022-12-31 04:00] VITALS: BP 150/63; TEMP 98.3; O2SAT 96
[2022-12-31 05:58] LABS: *BILIRUBIN,URIN NEGATIVE (NEGATIVE); *BLOOD, URINE NEGATIVE (NEGATIVE); *CLARITY,URINE CLEAR (CLEAR); *COLOR,URINE YELLOW (YELLOW); *KETONES,URINE NEGATIVE (NEGATIVE); *PROTEIN,URINE 2+ (NEGATIVE); *UROBILINOGEN,URINE 0.2 E.U./dl (NORMAL); LEUKOCYTE ESTERASE ,URINE NEGATIVE (NEGATIVE); NITRITE, URINE NEGATIVE (NEGATIVE); PH,URINE 5.5 (5.0-8.0)
[2022-12-31 06:09] LABS: UGLUCOSE 2+ (NEGATIVE)
[2022-12-31] MEDS: ACETAMINOPHEN 325 MG TABLET PO PRN (06:13)
[2022-12-31 06:24] LABS: BASOPHILS % (AUTO) 0.6 % (0.0-2.0); EOSINOPHILS # (AUTO) 0.1 K/uL (0.0-0.7); EOSINOPHILS % (AUTO) 1.1 % (0.0-7.0); HEMATOCRIT 34.8 % (31.2-41.9); HEMOGLOBIN 11.7 g/dL (10.9-14.3); LYMPHOCYTES # (AUTO) 1.3 K/uL (0.8-4.8); MEAN CORPUSCULAR HEMOGLOBIN 30.3 uug (24.7-32.8); MEAN CORPUSCULAR HGB CONC 34 g/dL (32.3-35.6); MEAN CORPUSCULAR VOLUME 90.4 fL (75.5-95.3); MONOCYTES # (AUTO) 0.4 K/uL (0.1-1.30); MONOCYTES % (AUTO) 6.2 % (0.0-11.0); NEUTROPHILS # (AUTO) 4.5 K/uL (1.8-8.9); NEUTROPHILS % (AUTO) 72.1 % (38.5-71.5); PLATELET COUNT (AUTO) 465 K/uL (179-408); RED BLOOD CELL COUNT(AUTO) 3.85 MIL/uL (3.63-4.92); RED CELL DISTRIBUTION WIDTH 13.1 % (12.3-17.7); WHITE BLOOD COUNT (AUTO) 6.3 K/uL (3.8-11.8)
[2022-12-31 06:58] LABS: CALCIUM 9.4 mg/dL (8.5-10.1); CREATININE 0.8 mg/dL (0.6-1.3); DIFFERENTIAL COMMENT 1; POTASSIUM 3.8 mmol/L (3.5-5.1)
[2022-12-31] MEDS: BLOOD SUGAR DIAGNOSTIC 1 EACH STRIP VI SCH ×2 (07:31→11:09)
[2022-12-31 07:45] LABS: BACTERIA,URINE FEW /HPF (NONE SEEN); RBC,URINE 0-3 /HPF (0-3); SQUAMOUS EPITHELIAL CELL,UR FEW /HPF (NONE SEEN); WBC,URINE 0-3 /HPF (0-3)
[2022-12-31 07:46] VITALS: BP 174/68; TEMP 98.4; O2SAT 95
[2022-12-31] MEDS: INSULIN REGULAR, HUMAN 300 UNIT/3 ML VIAL SQ PRN ×2 (08:14→11:55)
[2022-12-31] MEDS: FAMOTIDINE 20 MG TABLET PO SCH (08:24)
[2022-12-31] MEDS: ENOXAPARIN SODIUM 40 MG/0.4 ML DISP.SYRIN SQ SCH (08:24)
[2022-12-31] MEDS: hydrALAZINE HCL 50 MG TABLET PO SCH (08:25)
[2022-12-31] MEDS: CARVEDILOL 25 MG TABLET PO SCH (08:25)
[2022-12-31] MEDS: CLOPIDOGREL 75 MG TABLET PO SCH (08:25)
[2022-12-31] MEDS: DOCUSATE SODIUM 250 MG CAPSULE PO SCH (08:25)
[2022-12-31] MEDS: NEPRO (VANILLA) 237 ML CAN PO SCH (08:26)
[2022-12-31] MEDS: LOSARTAN POTASSIUM 50 MG TABLET PO SCH (08:26)
[2022-12-31] MEDS: ASPIRIN 81 MG TAB.CHEW PO SCH (08:26)
[2022-12-31 09:00] VITALS: BP 131/53; TEMP 98.4; O2SAT 95
[2022-12-31] MEDS ORDERED: SPIRONOLACTONE 25 MG TABLET PO SCH (09:00)
[2022-12-31 11:18] VITALS: BP 147/50; TEMP 98.1; O2SAT 95
[2022-12-31] MEDS ORDERED: Insulin Glargine,Hum SQ (12:22)
[2022-12-31] MEDS ORDERED: CALC500T63 PO (12:22)
[2022-12-31] MEDS ORDERED: CARV25TA2 PO (12:22)
[2022-12-31] MEDS ORDERED: SPIR25TA PO (12:22)
[2022-12-31] MEDS ORDERED: AMLO10TA59 PO (12:22)
[2022-12-31] MEDS ORDERED: Blood Sugar Diagnostic VI (12:22)
[2022-12-31] MEDS ORDERED: LOSA50TA3 PO (12:22)
[2022-12-31] MEDS ORDERED: ATOR40TA PO (12:22)
[2022-12-31] MEDS ORDERED: CLOP75TA33 PO (12:22)
[2022-12-31] MEDS ORDERED: HYDR50TA68 PO (12:22)
[2022-12-31] MEDS ORDERED: DOCU250C14 PO (12:22)
[2022-12-31] MEDS ORDERED: Nepro PO (12:22)
[2022-12-31] MEDS ORDERED: FAMO20TA8 PO (12:22)
[2022-12-31] MEDS ORDERED: ASPI81TA31 PO (12:22)
[2022-12-31] MEDS ORDERED: INSU100V28 SQ ×2 (12:22)
[2022-12-31 13:30] VITALS: BP 137/49; TEMP 98.2; O2SAT 95
== END 2022-12-31 14:20 | disposition home health service (06) | DRG 637 ==
LOC: ER 18:10 → TELE3 22:53 → MEDSURG3 12-27 14:37
PROVIDERS: ADMIT Nurse Practitioner Acute Care; ATTEND Internal Medicine
DX: E10.10 Type 1 diabetes mellitus with ketoacidosis without coma (principal); G93.41 Metabolic encephalopathy; N17.0 Acute kidney failure with tubular necrosis; I21.A1 Myocardial infarction type 2; D68.59 Other primary thrombophilia; E10.65 Type 1 diabetes mellitus with hyperglycemia; E86.0 Dehydration; R41.82 Altered mental status, unspecified; H54.8 Legal blindness, as defined in USA; I16.0 Hypertensive urgency; M81.0 Age-related osteoporosis without current pathological fracture; E78.5 Hyperlipidemia, unspecified; E83.51 Hypocalcemia; M19.90 Unspecified osteoarthritis, unspecified site; Z79.83 Long term (current) use of bisphosphonates; Z90.710 Acquired absence of both cervix and uterus; K44.9 Diaphragmatic hernia without obstruction or gangrene; Z79.02 Long term (current) use of antithrombotics/antiplatelets; G89.29 Other chronic pain; N32.89 Other specified disorders of bladder; E66.9 Obesity, unspecified; Z68.25 Body mass index [BMI] 25.0-25.9, adult; Z74.09 Other reduced mobility; Z78.1 Physical restraint status; Z79.4 Long term (current) use of insulin
CPT/HCPCS: 36415; 70450; 71045; 83605; 83690; 83735; 84100; 84484; 85025; 85730; 86803; 87040; 87806; 93005; 93307; A4663; G0378; J0360; J0696; J1200; J1630; J1650; J1815; J2060; J2543; J3370; J7040; J7042; J7050; Q9967

== ENCOUNTER 2023-12-17 10:02 | Emergency (ER) | payer MEDICARE, OTHER ==
[~2023-12-17] VITALS: Ht 162.6 cm; Wt 67.6 kg
[~2023-12-17 10:02] MED LIST changes: +ACET325T53 PO; +ALEN10TA26 PO; -ALEN70TA3 PO; -AMIT25TA9 PO; +AMLO10TA59 PO; -AMLO5TAB4 PO; +ASPI81TA31 PO; +ATOR40TA PO; +BISM262O28 PO; +Blood Sugar Diagnostic VI; +CALC-494 PO; +CALC500T63 PO; +CARV25TA2 PO; +CLOP75TA33 PO; +DICL100G31 TP; +DIPH1TAB PO; +DOCU250C14 PO; +FAMO20TA8 PO; -FENO134C PO; +GABA600T12 PO; -HYDR25TA4 PO; +HYDR50TA68 PO; -INSU100I19 SQ; +INSU100I24 SQ; -INSU100V SQ; -INSU100V10 SQ; +INSU100V28 SQ; +INSU200I SQ; +IRON; +Insulin Glargine,Hum SQ; +LEVO5TAB13 PO; +LOSA100T31 PO; +LOSA50TA3 PO; +MELO-105 PO; +Nepro PO; -OLME40TA12 PO; -OMEP20TA5 PO; -PREG75CA PO; -ROSU20TA2 PO; +SPIR25TA PO; +TRAM50TA2 PO; +[UNRECOGNIZED DRUG - OTHER]
[2023-12-17 11:54] LABS: BASOPHILS # (AUTO) 0.1 K/UL (0.0-0.2); BASOPHILS % (AUTO) 1.3 % (0.0-2.0); EOSINOPHILS # (AUTO) 0.1 K/uL (0.0-0.7); EOSINOPHILS % (AUTO) 2.6 % (0.0-7.0); HEMATOCRIT 30.1 % (31.2-41.9); HEMOGLOBIN 9.5 g/dL (10.9-14.3); LYMPHOCYTES % (AUTO) 21.8 % (20.5-51.5); MEAN CORPUSCULAR HEMOGLOBIN 25.3 uug (24.7-32.8); MEAN CORPUSCULAR HGB CONC 32 g/dL (32.3-35.6); MEAN CORPUSCULAR VOLUME 80.2 fL (75.5-95.3); MONOCYTES # (AUTO) 0.7 K/uL (0.1-1.30); MONOCYTES % (AUTO) 14.3 % (0.0-11.0); NEUTROPHILS # (AUTO) 2.9 K/uL (1.8-8.9); PLATELET COUNT (AUTO) 508 K/uL (179-408); RED BLOOD CELL COUNT(AUTO) 3.75 MIL/uL (3.63-4.92); RED CELL DISTRIBUTION WIDTH 14.8 % (12.3-17.7); WHITE BLOOD COUNT (AUTO) 4.8 K/uL (3.8-11.8)
[2023-12-17] MEDS: IV NORMAL SALINE 1000 ML BAG IV ONE (11:58)
[2023-12-17 11:59] LABS: DIFFERENTIAL COMMENT 1
[2023-12-17 12:10] LABS: *BILIRUBIN,URIN NEGATIVE (NEGATIVE); *BLOOD, URINE NEGATIVE (NEGATIVE); *CLARITY,URINE CLEAR (CLEAR); *COLOR,URINE YELLOW (YELLOW); *KETONES,URINE NEGATIVE (NEGATIVE); *PROTEIN,URINE 1+ (NEGATIVE); *UROBILINOGEN,URINE 0.2 E.U./dl (NORMAL); LEUKOCYTE ESTERASE ,URINE NEGATIVE (NEGATIVE); NITRITE, URINE NEGATIVE (NEGATIVE)
[2023-12-17 12:16] LABS: UGLUCOSE 1+ (NEGATIVE)
[2023-12-17 12:19] LABS: CALCIUM 9.7 mg/dL (8.5-10.1); CARBON DIOXIDE 31 mmol/L (21-32); CHLORIDE 103 mmol/L (98-107); CREATININE 1.3 mg/dL (0.6-1.3); GLUCOSE 166 mg/dL (74-106); POTASSIUM 4.6 mmol/L (3.5-5.1); SODIUM SERUM 141 mmol/L (136-145); UREA NITROGEN, BLOOD 31 mg/dL (7-18)
[2023-12-17 12:30] LABS: BACTERIA,URINE MODERATE /HPF (NONE SEEN); RBC,URINE 0-3 /HPF (0-3); SQUAMOUS EPITHELIAL CELL,UR FEW /HPF (NONE SEEN); WBC,URINE 0-3 /HPF (0-3)
[2023-12-17 12:33] LABS: ALANINE AMINOTRANSFERASE 26 U/L (14-59); ALBUMIN 3.4 g/dL (3.4-5.0); ALKALINE PHOSPHATASE 87 U/L (50-136); ASPARTATE AMINOTRANSFERASE 21 U/L (15-37); BILIRUBIN,DIRECT 0.1 mg/dL (0.0-0.2); BILIRUBIN,TOTAL 0.3 mg/dL (0.2-1.0)
[2023-12-17] MEDS: IV NS 1000 ML 1,000 ML IV ONE (12:53)
[2023-12-17 13:04] LABS: LACTIC ACID 2.5 mmol/L (0.4-2.0)
[2023-12-17 13:09] LABS: IRON, SERUM 51 ug/dL (50-175)
[2023-12-17] MEDS ORDERED: ACETAMINOPHEN 325 MG TABLET ONE (16:16)
[2023-12-17] MEDS: ACETAMINOPHEN 325 MG TABLET PO ONE (16:25)
[2023-12-17 16:36] VITALS: BP 133/50; O2SAT 95
== END 2023-12-17 16:37 | disposition home or self-care (01) ==
LOC: ER 10:02
DX: R55 Syncope and collapse (principal); E86.0 Dehydration; D64.9 Anemia, unspecified; E10.22 Type 1 diabetes mellitus with diabetic chronic kidney disease; N18.9 Chronic kidney disease, unspecified; E10.42 Type 1 diabetes mellitus with diabetic polyneuropathy; E78.5 Hyperlipidemia, unspecified; K21.9 Gastro-esophageal reflux disease without esophagitis; Z79.02 Long term (current) use of antithrombotics/antiplatelets; Z79.1 Long term (current) use of non-steroidal anti-inflammatories (NSAID); Z79.4 Long term (current) use of insulin; Z79.82 Long term (current) use of aspirin; Z79.899 Other long term (current) drug therapy; Z88.7 Allergy status to serum and vaccine
CPT/HCPCS: 36415; 70030-TC; 74018; 83550; 83605; 83735; 84484; 85025; A4606; A4663; J7040

== ENCOUNTER 2023-12-26 15:19 | Emergency (ER) | payer MEDICARE, OTHER ==
[~2023-12-26] VITALS: Ht 152.4 cm; Wt 61.2 kg
[2023-12-26] MEDS ORDERED: CLIN300C12 PO (16:14)
[2023-12-26 16:37] VITALS: BP 140/65; TEMP 97.2; O2SAT 97
== END 2023-12-26 16:37 | disposition home or self-care (01) ==
LOC: ER 15:19
DX: M79.604 Pain in right leg (principal); I11.0 Hypertensive heart disease with heart failure; E78.5 Hyperlipidemia, unspecified; E11.40 Type 2 diabetes mellitus with diabetic neuropathy, unspecified; E11.319 Type 2 diabetes mellitus with unspecified diabetic retinopathy without macular edema; I50.9 Heart failure, unspecified; K21.9 Gastro-esophageal reflux disease without esophagitis; Z79.899 Other long term (current) drug therapy; Z79.82 Long term (current) use of aspirin; Z79.4 Long term (current) use of insulin; Z79.1 Long term (current) use of non-steroidal anti-inflammatories (NSAID); Z79.02 Long term (current) use of antithrombotics/antiplatelets; Z88.7 Allergy status to serum and vaccine
CPT/HCPCS: A4606; A4663